=== PATIENT | female | born 1935 | race Caucasian/White ===

== ENCOUNTER 2020-05-24 14:45 | Inpatient (IN) | payer OTHER, BC, SELFPAY ==
[~2020-05-24] VITALS: Ht 165.1 cm; Wt 61.2 kg
[2020-05-24 14:45] VITALS: BP 102/70
--- NOTE | 2020-05-24 14:45 | NUR ---
DR RAMIRES MADE AWARE THAT PT HAS SLURRED SPEECH AND DIZZINESS UPON ARRIVAL
[2020-05-24] MEDS ORDERED: NACL 0.9% 1,000 ML IV ONE ×2 (15:15→19:45)
[2020-05-24 15:49] LABS: BASOPHILS % (AUTO) 0.6 % (0.0-2.0); EOSINOPHILS # (AUTO) 0.4 K/uL (0-0.4); EOSINOPHILS % (AUTO) 5.2 % (0.0-4.0); HEMATOCRIT 44.7 % (36-48); HEMOGLOBIN 15.2 g/dL (12.0-16.0); LYMPHOCYTES # (AUTO) 0.3 K/uL (2.5-16.5); LYMPHOCYTES % (AUTO) 4.6 % (20.5-51.1); MEAN CORPUSCULAR HEMOGLOBIN 34 pg (27-31); MEAN CORPUSCULAR HGB CONC 34 g/dL (33-37); MEAN CORPUSCULAR VOLUME 99.3 fL (80-94); MONOCYTES # (AUTO) 0.3 K/uL (0.8-1.0); MONOCYTES % (AUTO) 4.2 % (1.7-9.3); NEUTROPHILS % (AUTO) 85.4 % (42.2-75.2); PLATELET COUNT (AUTO) 88 K/uL (140-450); RED CELL DISTRIBUTION WIDTH 13.7 % (11.6-13.7)
--- NOTE | 2020-05-24 15:49 | NUR ---
LAC IV INFILTRATED, DISCONTINUED LINE AND FLUIDS. PT REFUSING REPALCEMENT OF IV. DR CHAUHAN AWARE
[2020-05-24 16:06] LABS: PROTHROMBIN TIME 10.1 secs (10.8-13.4)
[2020-05-24 16:11] LABS: ANION GAP 16.7 (8-16); ASPARTATE AMINOTRANSFERASE 59 U/L (15-37); CARBON DIOXIDE 22.4 mmol/L (21-32); CHLORIDE 101 mmol/L (98-107); CREATININE 1.9 mg/dL (0.6-1.3); GLUCOSE 141 mg/dL (74-106); LIPASE 346 U/L (73-393); POTASSIUM 4.1 mmol/L (3.5-5.1); SODIUM SERUM 136 mmol/L (136-145); TOTAL BILIRUBIN 2.3 mg/dL (0.0-1.0)
[2020-05-24 16:29] LABS: UREA NITROGEN, BLOOD 61 mg/dL (7-18)
--- NOTE | 2020-05-24 16:29 | NUR ---
RECEIVED CALL FROM SAF IN LAB WITH CRITICAL RESULTS: LACTIC ACID 2.[address] CHAUHAN NOTIFIED, NO NEW ORDERS RECEIVED
--- NOTE | 2020-05-24 18:21 | NUR ---
PT ADAMANT ABOUT REMOVING NASAL CANNULA DESPITE EDUCATING. O2 SAT BETWEEN 93-95 ON RA
[2020-05-24 18:53] LABS: APPEARANCE,URINE SL CLOUDY (CLEAR); BILIRUBIN,URINE 1+ (NEGATIVE); BLOOD, URINE 1+ (NEGATIVE); COLOR,URINE DARK YELLOW (YELLOW); LEUKOCYTE ESTERASE ,URINE NEGATIVE (NEGATIVE); NITRITE, URINE NEGATIVE (NEGATIVE); UGLUCOSE NEGATIVE (NEGATIVE)
--- NOTE | 2020-05-24 19:20 | NUR ---
RECEIVED REPORT FROM LUKAS HOLLEY FOR CONTINUITY OF CARE.
[2020-05-24 19:38] LABS: RBC,URINE 0-5 /HPF (0-5); WBC,URINE 0-5 /HPF (0-5)
[2020-05-24 19:39] LABS: FINE GRANULAR CASTS,URINE 0-10 /LPF (None Seen); URINE AMORPHOUS URATE 1+ /HPF (None Seen)
[2020-05-24] MEDS ORDERED: LEVOFLOXACIN 750 MG/D5W PREMIX 150 ML IV ONE (19:45)
--- NOTE | 2020-05-24 21:20 | NUR ---
PT LAYING IN BED IN NO ACUTE DISTRESS NOTED IVF OF 0.9% NS RUNNING AT THIS TIME. BED LOCKED AND IN LOWEST POSITION. ON CARDIAC MONITORING, BP MONITORING AND PULSE OXIMETRY.
[2020-05-24] MEDS ORDERED: HYDROcodone/APAP 7.5/325 MG 1 TAB PO PRN (21:40)
[2020-05-24] MEDS ORDERED: POTASSIUM CHLORIDE 40 MEQ, LIDOCAINE MPF 1% 25 MG in NACL 0.9% 250 ML IV PRN (21:40)
[2020-05-24] MEDS: NACL 0.9% 1,000 ML IV SCH (21:40)
[2020-05-24] MEDS ORDERED: ZOLPIDEM 5 MG TAB PO PRN (21:40)
[2020-05-24] MEDS ORDERED: ACETAMINOPHEN 325 MG TAB PO PRN (21:40)
[2020-05-24] MEDS ORDERED: DOCUSATE SODIUM 100 MG GELCAP PO PRN (21:40)
[2020-05-24] MEDS ORDERED: guaiFENesin DM 200/20 MG-10 ML 10 ML UDC PO PRN (21:40)
[2020-05-24] MEDS ORDERED: ONDANSETRON 4 MG/2 ML VIAL IM/IVP PRN (21:40)
--- NOTE | 2020-05-25 00:10 | NUR ---
Patient will be admitted to care of Dr. Denson . Admited to Telemetry. Will go to room 108A. Belongings list completed. Report to Jet HOLLEY.
[2020-05-25 00:12] LABS: FREE T4 (FREE THYROXINE) 1.12 ng/dL (0.76-1.46); MAGNESIUM 2.2 mg/dL (1.8-2.4); PHOSPHORUS 3.3 mg/dL (2.5-4.9); THYROID STIMULATING HORMONE 2.88 uIU/mL (0.34-3.74)
[2020-05-25] MEDS ORDERED: FAMO-90 PO (00:38)
[2020-05-25] MEDS ORDERED: MIRT-91 PO (00:38)
[2020-05-25] MEDS ORDERED: FERR325E14 PO (00:38)
[2020-05-25] MEDS ORDERED: DONE10TA37 PO (00:38)
[2020-05-25] MEDS ORDERED: LYR50 PO (00:38)
[2020-05-25] MEDS ORDERED: CLOP75TA55 PO (00:38)
[2020-05-25] MEDS ORDERED: DIT5 PO (00:38)
[2020-05-25] MEDS ORDERED: PREG200C PO (00:38)
[2020-05-25] MEDS ORDERED: MELO15TA11 PO (00:38)
[2020-05-25] MEDS ORDERED: CYCL-654 PO (00:38)
--- NOTE | 2020-05-25 00:50 | NUR ---
PT ARRIVED TO UNIT FROM ED VIA GURNEY. RECEIVED REPORT PRIOR. PT AOX2-3, ABLE TO MAKE NEEDS KNOWN. CALM AND COOPERATIVE TO CARE. PT WITH MOMENTS OF CONFUSION. RESPIRATIONS ARE EVEN AND UNLABORED TO ROOM AIR. ABDOMEN IS SOFT AND NON-TENDER, ACTIVE BOWEL SOUNDS NOTED. SKIN IS WARM, DRY, AND INTACT. PT WITH IV ACCESS ON LEFT FA G22 PATENT AND INTACT, IVF INFUSING WELL. PT NOT IN DISTRESS, DENIES ANY PAIN OR DISCOMFORT. NO REQUESTS MADE. PT WELCOMED AND ORIENTED TO ROOM. VS TAKEN, STABLE. MRSA SWAB COLLECTED, PT HOOKED TO TELE MONITOR. PT KEPT COMFORTABLE. SAFETY MEASURES IN PLACE. CALL LIGHT WITHIN REACH. WILL CONTINUE TO MONITOR.
[2020-05-25 01:32] VITALS: BP 107/66
--- NOTE | 2020-05-25 02:29 | NUR ---
ROUNDS MADE. PT IN BED RESTING WITH HOB ELEVATED. PT NOT IN DISTRESS. DENIES ANY PAIN OR DISCOMFORT. NO REQUESTS MADE. PT KEPT COMFORTABLE. SAFETY MEASURES IN PLACE. CALL LIGHT WITHIN REACH. WILL CONTINUE TO MONITOR.
[2020-05-25 04:00] VITALS: BP 115/70
--- NOTE | 2020-05-25 04:07 | NUR ---
VS STABLE. PT IN BED RESTING. DENIES ANY PAIN OR DISCOMFORT. NO S/SX OF DISTRESS NOTED. NO REQUESTS MADE. PT KEPT COMFORTABLE. WILL CONTINUE TO MONITOR.
--- NOTE | 2020-05-25 07:49 | NUR ---
ENDORSED TO DAYSHIFT NURSE FOR CONTINUITY OF CARE
--- NOTE | 2020-05-25 07:50 | NUR ---
RECEIVED REPORT FROM PM RN FOR CONTINUITY OF CARE. PT IS STABLE
[2020-05-25 07:54] LABS: BASOPHILS % (AUTO) 0.3 % (0.0-2.0); EOSINOPHILS # (AUTO) 0.5 K/uL (0-0.4); EOSINOPHILS % (AUTO) 7.8 % (0.0-4.0); HEMATOCRIT 40.2 % (36-48); HEMOGLOBIN 13.7 g/dL (12.0-16.0); LYMPHOCYTES # (AUTO) 0.6 K/uL (2.5-16.5); LYMPHOCYTES % (AUTO) 8.4 % (20.5-51.1); MEAN CORPUSCULAR HEMOGLOBIN 34 pg (27-31); MEAN CORPUSCULAR HGB CONC 34 g/dL (33-37); MEAN CORPUSCULAR VOLUME 100.1 fL (80-94); MONOCYTES # (AUTO) 0.4 K/uL (0.8-1.0); MONOCYTES % (AUTO) 6.6 % (1.7-9.3); NEUTROPHILS # (AUTO) 5.1 K/uL (1.8-7.7); NEUTROPHILS % (AUTO) 76.9 % (42.2-75.2); PLATELET COUNT (AUTO) 89 K/uL (140-450); RED BLOOD CELL COUNT(AUTO) 4.02 MIL/uL (4.20-5.40); RED CELL DISTRIBUTION WIDTH 13.9 % (11.6-13.7); WHITE BLOOD COUNT (AUTO) 6.6 K/uL (4.8-10.8)
[2020-05-25 08:00] VITALS: BP 145/73
[2020-05-25 08:17] LABS: ANION GAP 13.3 (8-16); CARBON DIOXIDE 23.6 mmol/L (21-32); CHLORIDE 108 mmol/L (98-107); CREATININE 1.4 mg/dL (0.6-1.3); GLUCOSE 95 mg/dL (74-106); POTASSIUM 3.9 mmol/L (3.5-5.1); SODIUM SERUM 141 mmol/L (136-145); UREA NITROGEN, BLOOD 45 mg/dL (7-18)
--- NOTE | 2020-05-25 08:45 | NUR ---
PT IS AWAKE AND ORIENTED X 2 TO PERSON, PLACE. FRIENDLY RECEIVING IVF TO LEFT FOREARM. LUNG SOUNDS CLEAR ABD IS ROUND, SOFT AND NONTENDER ACTIVE BS X 4. TOLERATED PO MEDICATION. REMAINS ALTERED. PT WAS RE-ORIENTED, SAFETY MEASURES IN PLACE. WILL CONTINUE WITH POC.
[2020-05-25] MEDS: PANTOPRAZOLE 40 MG TABEC PO SCH (08:54)
--- NOTE | 2020-05-25 09:00 | NUR ---
PATIENT HAS BEEN SCREENED AND CATEGORIZED HIGH NUTRITION RISK. PATIENT WILL BE SEEN WITHIN 1-2 DAYS OF ADMISSION. 05/25/20-05/26/[address]Z RD
--- NOTE | 2020-05-25 10:35 | NUR ---
PT RESTING IN BED, RECEIVING IVF IN NO DISTRESS
[2020-05-25] MEDS ORDERED: MIRTAZAPINE 15 MG TAB PO PRN (11:35)
[2020-05-25 12:00] VITALS: BP 148/79
--- NOTE | 2020-05-25 12:48 | NUR ---
PT CURRENTLY RECEIVING HEMODIALYSIS. BS AT THIS TIME 129 NO COVERAGE NEEDED. HEPARIN 10,000 GIVEN TO HEMODIALYSIS NURSE FOR ADMINISTRATION/FLUSH AFTER DIALYSES. NO SEIZURE LIKE ACTIVITY Addendum: 05/25/20 at 1257 by Christine Das RN WRONG PT DISREGARD PT IS RESTING IN BED IN NO DISTRESS. CALL LIGHT WITHIN REACH. ALL NEEDS MET.
[2020-05-25 13:46] LABS: CHOL/HDL RATIO 6.7 (1-4.5)
--- NOTE | 2020-05-25 14:45 | NUR ---
PT LAYING IN BED WITH HOB SLIGHTLY ELEVATED IN NO DISTRESS. PT NEEDS REDIRECTION FROM REMOVING LEADS HOWEVER REDIRECTABLE. REMAINS ALTERED CAN COMMUNICATE WANTS AND NEEDS. CONTINUES TO RECEIVE IVF.
--- NOTE | 2020-05-25 14:50 | NUR ---
05/25/20 RD INITIAL ASSESSMENT COMPLETED PLEASE REFER TO NUTRITION ASSESSMENT UNDER CARE ACTIVITY FOR ESTIMATED NUTRITIONAL NEEDS. 1. CONTINUE PUREE DIET TOLERATED 2. RECOMMEND ENSURE TID 3. ENCOURAGE PO INTAKE ABOVE 50% 4. RD TO FOLLOW-UP 2-3 DAYS, HIGH RISK LUKAS MUÑOZ, RD
[2020-05-25] MEDS: NACL 0.9% 1,000 ML IV SCH (15:16)
[2020-05-25 16:00] VITALS: BP 153/64
--- NOTE | 2020-05-25 16:51 | NUR ---
PT RESTING IN BED IN NO DISTRESS. ALL NEEDS MET.
--- NOTE | 2020-05-25 18:48 | NUR ---
PT IS RESTING IN BED, SOME MOMENTS OF HALLUCINATIONS VERBALIZING SHE SEES BLOOD ON THE FLOOR, REFERRING TO DISCOLORS ON THE WALL. REPORTING SEEING FAMILY PRESENT. PT WAS RE-ORIENTED AND REASSURED FOR SAFETY. BED ALARM ACTIVATED SAFETY MEASURES IN PLACE.
--- NOTE | 2020-05-25 19:35 | NUR ---
PT ENDORSED TO PM RN FOR CONTINUITY OF CARE. PT IS STABLE AT THIS TIME
--- NOTE | 2020-05-25 19:36 | NUR ---
RECEIVED BEDSIDE ENDORSEMENT FROM AM SHIFT RN. PT IS AWAKE, ALERT, LYING IN BED, FOWLERS POSITION, WATCHING TV, NO DISTRESS, DENIES PAIN, IVF INFUSING, FALL PROTOCOL IN PLACE, PLAN OF CARE DISCUSSED, CALL LIGHT WITHIN REACH.
[2020-05-25 20:00] VITALS: BP 148/80
[2020-05-25] MEDS: CYCLOBENZAPRINE 10 MG TAB PO SCH (20:27)
[2020-05-25] MEDS: DONEPEZIL 10 MG TAB PO SCH (20:27)
[2020-05-25] MEDS: PREGABALIN 50 MG CAP PO SCH (20:27)
--- NOTE | 2020-05-25 20:35 | NUR ---
PT IS AWAKE, WATCHING TV. HOB ELEVATED, DUE MEDS GIVEN ORDERED, TOLERATED WELL, CALL LIGHT WITHIN REACH.
[2020-05-26] VITALS (8 sets, daily range): BP systolic 128–166; BP diastolic 60–98
[2020-05-26] MEDS: NACL 0.9% 1,000 ML IV SCH ×2 (00:59→23:40)
--- NOTE | 2020-05-26 00:59 | NUR ---
IVF FINISHED, HANGED A NEW IVF, CALL LIGHT WITHIN REACH.
--- NOTE | 2020-05-26 03:00 | NUR ---
PERINEAL CARE RENDERED, KEPT CLEAN, DRY AND COMFORTABLE AT ALL TIMES, CALL LIGHT WITHIN REACH.
--- NOTE | 2020-05-26 07:53 | NUR ---
PT IS IN STABLE CONDITION. BEDSIDE ENDORSEMENT GIVEN TO AM SHIFT RN FOR CONTINUITY OF CARE.
[2020-05-26] MEDS: FERROUS SULFATE 325 MG TABEC PO SCH (08:36)
[2020-05-26] MEDS: PANTOPRAZOLE 40 MG TABEC PO SCH (08:36)
[2020-05-26] MEDS: OXYBUTYNIN 5 MG TAB PO SCH (08:36)
[2020-05-26] MEDS: CLOPIDOGREL 75 MG TAB PO SCH (08:37)
[2020-05-26] MEDS: PREGABALIN 50 MG CAP PO SCH ×2 (08:37→22:14)
[2020-05-26 08:46] LABS: BASOPHILS # (AUTO) 0.1 K/uL (0.00-0.22); BASOPHILS % (AUTO) 0.7 % (0.0-2.0); EOSINOPHILS # (AUTO) 0.5 K/uL (0-0.4); EOSINOPHILS % (AUTO) 6.4 % (0.0-4.0); HEMATOCRIT 39.3 % (36-48); HEMOGLOBIN 13.4 g/dL (12.0-16.0); LYMPHOCYTES # (AUTO) 1.5 K/uL (2.5-16.5); LYMPHOCYTES % (AUTO) 18.9 % (20.5-51.1); MEAN CORPUSCULAR HEMOGLOBIN 34 pg (27-31); MEAN CORPUSCULAR HGB CONC 34 g/dL (33-37); MEAN CORPUSCULAR VOLUME 100.7 fL (80-94); MONOCYTES # (AUTO) 0.9 K/uL (0.8-1.0); MONOCYTES % (AUTO) 11.2 % (1.7-9.3); NEUTROPHILS # (AUTO) 4.9 K/uL (1.8-7.7); NEUTROPHILS % (AUTO) 62.8 % (42.2-75.2); PLATELET COUNT (AUTO) 91 K/uL (140-450); RED CELL DISTRIBUTION WIDTH 13.4 % (11.6-13.7); WHITE BLOOD COUNT (AUTO) 7.8 K/uL (4.8-10.8)
[2020-05-26 10:10] LABS: CARBON DIOXIDE 21.1 mmol/L (21-32); CHLORIDE 111 mmol/L (98-107); CREATININE 1.1 mg/dL (0.6-1.3); GLUCOSE 97 mg/dL (74-106); POTASSIUM 4.1 mmol/L (3.5-5.1); SODIUM SERUM 144 mmol/L (136-145); UREA NITROGEN, BLOOD 23 mg/dL (7-18)
[2020-05-26] MEDS ORDERED: IV Rocephin IV (11:10)
--- NOTE | 2020-05-26 12:57 | NUR ---
Talked to case management regarding discharge planning. Case management said still working on discharge Addendum: 05/26/20 at 1424 by Agency Elio HOLLEY RN 1424: Followed up with DC demand generation manager; waiting for transport
--- NOTE | 2020-05-26 13:31 | NUR ---
ETHAN SOLNER: PATIENT WILL BE DISCHARGED TODAY BACK TO [facility] TODAY. FAXED CLINICALS WILL FOLLOW UP FOR A BED NUMBER. Addendum: 05/26/20 at 1346 by Miriam Reeves CM ETHAN ALEJANDRA: PATIENT IS FROM [facility]. PATIENT CAN RETURN TO [facility] RO[facility]. HOWEVER THEY CAN NOT PROVIDE TRANSPORTATION. Addendum: 05/26/20 at 1504 by Miriam Reeves CM ETHAN ALEJANDRA: TRANSPORTATION HAS BEEN SET UP WITH [facility] [phone] FOR 7:00 PM. NOTIFIED KISHAN [facility] [phone] [facility] [address] Addendum: 05/26/20 at 1506 by Miriam Reeves CM ETHAN ALEJANDRA: TRIED TO CONTACT PATIENTS DOUG OWENS [phone] THE PHONE NUMBER PROVIDED IS DISCONNECTED.
--- NOTE | 2020-05-26 17:56 | NUR ---
Called [facility]; gave report to CRUZ Morales, charge nurse
[2020-05-26] MEDS ORDERED: CEPH-1019 PO (18:18)
--- NOTE | 2020-05-26 19:20 | NUR ---
RECEIVED BEDSIDE ENDORSEMENT FROM AM SHIFT RN. PT IS IN BED, FOWLERS POSITION, NO DISTRESS, IVF INFUSING, WE'RE WAITING FOR TRANSPORT TO ARRIVE, D/C PAPERS PRINTED OUT AND SIGNED, AM NURSE ALREADY GAVE REPORT TO THE NURSE IN [facility]. PT IS GOING TO ROOM 209. FALL PROTOCOL IN PLACE, CALL LIGHT WITHIN REACH.
[2020-05-26] MEDS: CYCLOBENZAPRINE 10 MG TAB PO SCH (22:13)
[2020-05-26] MEDS: DONEPEZIL 10 MG TAB PO SCH (22:13)
--- NOTE | 2020-05-26 22:15 | NUR ---
PT IS AWAKE , HOB ELEVATED, DUE MEDS GIVEN ORDERED, TOLERATED WELL, CALL LIGHT WITHIN REACH.
--- NOTE | 2020-05-26 22:30 | NUR ---
PT STABLE. ENDORSED PT TO KISHAN RO FOR CONTINUITY OF CARE.
--- NOTE | 2020-05-26 22:30 | NUR ---
RECIEVED PT AWAKE , CONFUSED - W/ HX OF DEMENTIA , NID - O2 SAT WNL - RA , IV SITE INTACT AND PATENT PER NURSE DILCIA PT IS FOR DISCHARGE BACK TO NURSING FACILITY - WAITING THE [facility] TO DAY TRADER THE PT . SAFETY MEASURES IN PLACE - BED ALARM ON . PLAN OF CARE DISCUSSED BUT POOR UNDERSTANDING DUE TO MENTAL STATUS - ON TELE MONITOR . WILL CONT. TO MONITOR . DENIES ANY PAIN .
[2020-05-27] VITALS: BP_SYST 140; BP_SYST 160; BP_DIAS 75; BP_DIAS 78
--- NOTE | 2020-05-27 | NUR ---
MADE ROUNDS , NO S/SX OF ACUTE DISTRESS NOTED . BED ALARM ON .
--- NOTE | 2020-05-27 02:00 | NUR ---
SLEEPING . CHEST RISE AND FALL EQUALLY . BED ALARM ON .
[2020-05-27 04:00] VITALS: BP 133/82
--- NOTE | 2020-05-27 04:00 | NUR ---
O2 SAT WNL . NO S/SX OF ACUTE DISTRESS NOTED
--- NOTE | 2020-05-27 06:00 | NUR ---
NO COMPLAIN MADE . RESTING COMFORTABLY ON BED .
--- NOTE | 2020-05-27 07:10 | NUR ---
RECEIVED ENDORSEMENT FROM BASEBALL PLAYER, AWAKE,ALERT AND ORIENNTEDX1, BREATHING SPONTANEOUSLY AT ROOM AIR, NON LABORED NOTED. WITH IV CANNULA G22 AT LEFT HAND ON SALINE LOCK. SAFETY MEASURES IN PLACE AND CONTINUE MONITOR. FOR DISCHARGE TO [facility], AWAITING TRANSPORT PERSONNEL.
--- NOTE | 2020-05-27 07:10 | NUR ---
ENDORSED TO RELYN PT IS FOR DISCHARGE BUT THE TREE CLIMBER OF [facility] CALL OFF SO THAT THE PT STAYING HERE FOR WHOLE NIGHT - I TRIED TO CALL [employer] TO UPDATE THEM BUT NO ANSWER - NO ANSWERING MACHINE TOO - ENDORSE TO KISHAN PT HAS CONT. ANTIBIOTIC AND SHE HAVE TO UPDATE THE FACILITY . Addendum: 05/27/20 at 0805 by Hortensia Paris RN ENDORSED - PT - STABLE
[2020-05-27 08:14] LABS: T4 (THYROXINE) 5.6 ug/dL (4.5-12.0)
[2020-05-27] MEDS: FERROUS SULFATE 325 MG TABEC PO SCH (08:57)
[2020-05-27] MEDS: PANTOPRAZOLE 40 MG TABEC PO SCH (08:57)
[2020-05-27] MEDS: PREGABALIN 50 MG CAP PO SCH (08:58)
[2020-05-27] MEDS: OXYBUTYNIN 5 MG TAB PO SCH (08:58)
[2020-05-27] MEDS: CLOPIDOGREL 75 MG TAB PO SCH (08:58)
--- NOTE | 2020-05-27 09:09 | NUR ---
FULLY AWAKE AND ALERT, DUE MEDICATION GIVEN
--- NOTE | 2020-05-27 09:55 | NUR ---
HOLGER CURRY CONTACTED THAT THE WILL TILE LAYER DRAINAGE THE PATIENT, NO AVAILABLE TRANSPORT FOR NOW PER THE PREDATOR CONTROL TRAPPER RAÚL.
[2020-05-27 09:58] LABS: HEMATOCRIT 36.4 % (36-48); HEMOGLOBIN 12.4 g/dL (12.0-16.0); MEAN CORPUSCULAR HEMOGLOBIN 35 pg (27-31); MEAN CORPUSCULAR HGB CONC 34 g/dL (33-37); MEAN CORPUSCULAR VOLUME 100.7 fL (80-94); PLATELET COUNT (AUTO) 112 K/uL (140-450); RED BLOOD CELL COUNT(AUTO) 3.61 MIL/uL (4.20-5.40); RED CELL DISTRIBUTION WIDTH 13.7 % (11.6-13.7); WHITE BLOOD COUNT (AUTO) 9.8 K/uL (4.8-10.8)
--- NOTE | 2020-05-27 10:05 | NUR ---
IV CANNULA REMOVED AND DRESSING APPLIED, NO BLEEDING NOTED. PREPARED FOR DISCHARGE, DIAPER PLACED AND CLOTHES CHANGED.
--- NOTE | 2020-05-27 10:17 | NUR ---
DISCHARGED IN STABLE CONDITION, BREATHING SPONTANEOUSLY AT ROOM AIR PER WHEELCHAIR ACCOMPANIED BY RED HAT ENGINEER WITH DISCHARGE PACKET INSTRUCTION [facility].
[2020-05-27 10:20] LABS: ANION GAP 14.2 (8-16); CARBON DIOXIDE 24.4 mmol/L (21-32); CHLORIDE 111 mmol/L (98-107); CREATININE 0.9 mg/dL (0.6-1.3); GLUCOSE 97 mg/dL (74-106); POTASSIUM 3.6 mmol/L (3.5-5.1); SODIUM SERUM 146 mmol/L (136-145); UREA NITROGEN, BLOOD 18 mg/dL (7-18)
[2020-05-27 16:28] LABS: EOSINOPHILS % (MANUAL) 4 % (0-4); LYMPHOCYTES % (MANUAL) 45 % (20-46); MONOCYTES % (MANUAL) 9 % (5-12)
== END 2020-05-27 10:27 | disposition home or self-care (01) | DRG 689 ==
LOC: MED 14:45 → MTU 20:54
PROVIDERS: ADMIT Family Medicine; ATTEND Family Medicine
DX: N39.0 Urinary tract infection, site not specified (principal); N17.0 Acute kidney failure with tubular necrosis; G93.41 Metabolic encephalopathy; E44.0 Moderate protein-calorie malnutrition; E87.2 Acidosis; E87.0 Hyperosmolality and hypernatremia; I12.9 Hypertensive chronic kidney disease with stage 1 through stage 4 chronic kidney disease, or unspecified chronic kidney disease; E78.5 Hyperlipidemia, unspecified; F03.90 Unspecified dementia, unspecified severity, without behavioral disturbance, psychotic disturbance, mood disturbance, and anxiety; M06.9 Rheumatoid arthritis, unspecified; N18.30 Chronic kidney disease, stage 3 unspecified; E86.0 Dehydration; Z68.22 Body mass index [BMI] 22.0-22.9, adult; Z88.0 Allergy status to penicillin; Z88.2 Allergy status to sulfonamides; Z91.040 Latex allergy status; Z91.018 Allergy to other foods
CPT/HCPCS: 36415; 70450; 71045; 80048; 80053; 81001; 82150; 83036; 83605; 83690; 83735; 83880; 84100; 84436; 84439; 84443; 84479; 84484; 85025; 85610; 87040; 87081; 87086; 93005; 96365; 99291; J0696; J1956; J2001; J3480; J7030; J7060